=== PATIENT | female | born 1930 | race Caucasian/White ===

== ENCOUNTER → 2016-03-11 | Outpatient (CLI) | payer OTHER, MEDICARE ==
[~2016-03-11] MED LIST: ASPI81TA28 PO; CALC-393 PO; DABI150C PO; GLC/500 PO; LISI5TAB PO; LUTE6CAP PO; MULT-190 PO; NXM/40 PO; OMEGCAP2 PO; POTA-327 PO; PROP40TA5 PO
[2016-03-11 15:32] LABS: BLOOD UREA NITROGEN 16 mg/dl (7-18); BUN/CREATININE RATIO 20.8 (10-20); CALCIUM 9.3 mg/dl (8.5-10.1); CARBON DIOXIDE 28 mmol/L (21-32); CHLORIDE 104 mmol/L (98-107); CHOLESTEROL 206 mg/dl (0-200); CREATININE 0.76 mg/dl (0.60-1.20); GLUCOSE 111 mg/dl (70-99); POTASSIUM 4.2 mmol/L (3.5-5.1); SODIUM 139 mmol/L (136-145)
[2016-03-11 15:34] LABS: CHOLESTEROL/HDL RATIO 3.6; HDL CHOLESTEROL 57 mg/dl; TRIGLYCERIDES 77 mg/dl (0-150); VERY LOW DENSITY LIPOPROT CALC 15 mg/dl
[2016-03-12 06:43] LABS: ESTIMATED AVERAGE GLUCOSE 134 mg/dl; HA1C FLAG Normal (Normal)
== END | disposition home or self-care (01) ==
LOC: C.LABSPEC 14:41
PROVIDERS: ATTEND Internal Medicine
DX: I10 Essential (primary) hypertension (principal); I48.91 Unspecified atrial fibrillation; E78.5 Hyperlipidemia, unspecified; E11.9 Type 2 diabetes mellitus without complications

== ENCOUNTER → 2016-03-30 | Outpatient (CLI) | payer OTHER, MEDICARE ==
--- NOTE | 2016-03-30 15:17 | DIAGNOSTIC IMAGING REPORT ---
L-SPINE MIN 4 VIEWS ROUTINE CLINICAL HISTORY: Back pain with left leg radiculopathy COMPARISON STUDY: No previous studies for comparison. FINDINGS: There is no pathologic bowel dilatation. There are surgical clips within the right upper quadrant consistent with a prior cholecystectomy. There are postsurgical changes of an L4-5 discectomy and interbody fusion. There is a grade 1 spondylolisthesis of L4 and L5. There is posterior pedicle screw fixation at the L4-5 level. There are no acute fractures. There are degenerative changes present at the L3-4 level. IMPRESSION: Postsurgical changes at the L4-5 level. Osteopenia. No acute fractures identified. Electronically signed by: James Umaña M.D. 03/30/2016 3:16 PM Dictated Date/Time: 03/30/2016 3:15 PM
== END | disposition home or self-care (01) ==
LOC: C.RAD 14:41
PROVIDERS: ATTEND Internal Medicine
DX: M54.16 Radiculopathy, lumbar region (principal)

== ENCOUNTER → 2016-07-09 | Outpatient (CLI) | payer OTHER, MEDICARE ==
[2016-07-09 12:58] LABS: BASO % 0.3 %; BASO ABS # 0.02 K/uL (0-0.2); COMPLETE YES; EOS % 1.6 %; IG% 0.2 %; LYMPH % 27.5 %; LYMPH ABS # 1.75 K/uL (1.2-3.4); MEAN CELL VOLUME 91.3 fL (80-100); MEAN CORPUSCULAR HEMOGLOBIN 29.8 pg (25-34); MEAN CORPUSCULAR HGB CONC 32.6 g/dl (32-36); MONO % 11.5 %; NEUT % 58.9 %; PLATELET COUNT 240 K/uL (130-400); WHITE BLOOD COUNT 6.37 K/uL (4.8-10.8)
[2016-07-09 13:19] LABS: CALCIUM 9.6 mg/dl (8.5-10.1)
[2016-07-09 13:20] LABS: ESTIMATED AVERAGE GLUCOSE 140 mg/dl; HA1C FLAG Normal (Normal)
[2016-07-09 13:28] LABS: ALB/GLOB RATIO 0.9 (0.9-2); ALT/SGPT 19 U/L (12-78); AST/SGOT 12 U/L (15-37); BLOOD UREA NITROGEN 16 mg/dl (7-18); BUN/CREATININE RATIO 19.8 (10-20); CARBON DIOXIDE 28 mmol/L (21-32); CHLORIDE 101 mmol/L (98-107); CHOLESTEROL 216 mg/dl (0-200); CREATININE 0.81 mg/dl (0.60-1.20); GLUCOSE 126 mg/dl (70-99); POTASSIUM 4.2 mmol/L (3.5-5.1); SODIUM 137 mmol/L (136-145); TRIGLYCERIDES 77 mg/dl (0-150); VERY LOW DENSITY LIPOPROT CALC 15 mg/dl
[2016-07-09 13:33] LABS: ALKALINE PHOSPHATASE 92 U/L (45-117); CHOLESTEROL/HDL RATIO 3.8; HDL CHOLESTEROL 57 mg/dl
== END | disposition home or self-care (01) ==
LOC: C.LABSPEC 12:25
PROVIDERS: ATTEND Internal Medicine
DX: I10 Essential (primary) hypertension (principal); I48.91 Unspecified atrial fibrillation; E11.9 Type 2 diabetes mellitus without complications; E78.5 Hyperlipidemia, unspecified

== ENCOUNTER → 2016-07-25 | Outpatient (CLI) | payer OTHER, MEDICARE | END | disposition home or self-care (01) | LOC: C.LABSPEC 17:31 | PROVIDERS: ATTEND Internal Medicine | DX: Z12.11 Encounter for screening for malignant neoplasm of colon (principal) ==

== ENCOUNTER → 2016-08-19 | Outpatient (CLI) | payer OTHER, MEDICARE ==
--- NOTE | 2016-08-19 15:22 | MAMMOGRAPHY REPORT ---
BILATERAL DIGITAL SCREENING MAMMOGRAM WITH CAD: 08/19/2016 CLINICAL HISTORY: Routine screening. TECHNIQUE: Current study was also evaluated with a Computer Aided Detection (CAD) system. Bilateral CC and MLO views were obtained. COMPARISON: Comparison is made to exams dated: 08/18/2015 mammogram, 08/14/2014 mammogram, 08/13/2013 sobia mogram, 08/09/2012 mammogram, 08/09/2011 mammogram, and 08/06/2010 mammogram - [facility] BREAST COMPOSITION: There are scattered areas of fibroglandular density in both breasts. FINDINGS: No suspicious masses, calcifications, or areas of architectural distortion are noted in ei ther breast. There has been no significant interval change compared to prior exams. Scattered bilater al benign-appearing calcifications are not significantly changed. Bilateral asymmetries are stable. A linear scar marker denotes a scar on the right breast. IMPRESSION: ACR BI-RADS CATEGORY 2: BENIGN There is no mammographic evidence of malignancy. A 1 year screening mammogram is recommended. The pa tient will receive written notification of the results. Approximately 10% of breast cancers are not detected with mammography. A negative mammographic report should not delay biopsy if a clinically suggestive mass is present. Ebonie Jurado M.D. ah/:08/19/2016 12:17:26 [employer] Helper: Jose GONZALEZ)(M), [facility] letter sent: Normal 1/2 BI-RADS Code: ACR BI-RADS Category 2: Benign
== END | disposition home or self-care (01) ==
LOC: C.MAMM 10:35
PROVIDERS: ATTEND Internal Medicine
DX: Z12.31 Encounter for screening mammogram for malignant neoplasm of breast (principal)

== ENCOUNTER → 2017-03-15 | Outpatient (CLI) | payer OTHER, MEDICARE ==
[2017-03-15 13:43] LABS: HEMOGLOBIN A1C 6.7 % (4.5-5.6)
[2017-03-15 14:59] LABS: ALBUMIN 3.8 gm/dl (3.4-5.0); ALT/SGPT 20 U/L (12-78); BLOOD UREA NITROGEN 16 mg/dl (7-18); CALCIUM 9.3 mg/dl (8.5-10.1); CARBON DIOXIDE 25 mmol/L (21-32); CHOLESTEROL 158 mg/dl (0-200); CREATININE 0.86 mg/dl (0.60-1.20); GLUCOSE 125 mg/dl (70-99); POTASSIUM 4.4 mmol/L (3.5-5.1); SODIUM 134 mmol/L (136-145)
[2017-03-15 15:01] LABS: ALKALINE PHOSPHATASE 100 U/L (45-117); AST/SGOT 11 U/L (15-37); LDL CHOLESTEROL (DIRECT) 104 mg/dl; TOTAL PROTEIN 7.2 gm/dl (6.4-8.2)
== END | disposition home or self-care (01) ==
LOC: C.LABSPEC 12:51
PROVIDERS: ATTEND Internal Medicine
DX: E11.9 Type 2 diabetes mellitus without complications (principal); I10 Essential (primary) hypertension; I48.91 Unspecified atrial fibrillation; E78.5 Hyperlipidemia, unspecified

== ENCOUNTER → 2017-03-21 | Outpatient (CLI) | payer OTHER, MEDICARE ==
[2017-03-21 19:22] LABS: INFLUENZA B ANTIGEN Neg for Influ B (NEG)
== END | disposition home or self-care (01) ==
LOC: C.LABSPEC 18:09
PROVIDERS: ATTEND Internal Medicine
DX: B34.9 Viral infection, unspecified (principal)